=== PATIENT | female | born 1970 | race African-American/Black ===

== ENCOUNTER → 2020-05-10 | Emergency (ER) | payer OTHER ==
[~2020-05-10] VITALS: Ht 162.6 cm; Wt 81.7 kg
[~2020-05-10] MED LIST: AMLODIPINE BESY10 MG PO; HYDROCHLOROTHIA25 M2 PO; IBUPROFEN 600600 M1 PO; OMEPRAZOLE40 MG PO
[2020-05-10 07:24] VITALS: BP 153/101
== END ==
LOC: ER 06:43
DX: I10 Essential (primary) hypertension (principal); R51.9 Headache, unspecified; R11.0 Nausea; R19.7 Diarrhea, unspecified; Z53.21 Procedure and treatment not carried out due to patient leaving prior to being seen by health care provider